=== PATIENT | female | born 1985 | race Caucasian/White ===

== ENCOUNTER 2018-10-12 16:48 | Inpatient (IN) | payer OTHER ==
[~2018-10-12] VITALS: Ht 167.6 cm; Wt 97.8 kg
[2018-10-12 17:04] VITALS: BP 144/83
[2018-10-12 17:14] VITALS: BP 114/68
[2018-10-12] MEDS ORDERED: PRENTAB9 PO (17:26)
[2018-10-12] MEDS ORDERED: DIBUCAINE 1% OINTMENT 30GM TOP PRN (20:00)
[2018-10-12] MEDS ORDERED: ACETAMINOPHEN TAB 650MG DOSE (2X325MG) PO PRN (20:00)
[2018-10-12] MEDS ORDERED: OXYTOCIN INJ 10 UNITS/ML VIAL (J2590) IM ONE (20:00)
[2018-10-12] MEDS ORDERED: LIDOCAINE 1% MDV 20ML VIAL INFIL ONE (20:00)
[2018-10-12] MEDS ORDERED: METHYLERGONOVINE MALEATE 0.2 MG TAB PO PRN (20:00)
[2018-10-12] MEDS ORDERED: DOCUSATE SODIUM 100 MG CAP PO PRN (20:00)
[2018-10-12] MEDS ORDERED: IBUPROFEN 600 MG TAB PO PRN (20:00)
[2018-10-12] MEDS ORDERED: OXYTOCIN DRIP 30 UNITS in APPROPRIATE DILUENT 1 EA IV SCH (20:00)
--- NOTE | 2018-10-12 20:20 | HPEPDOC ---
Obstetrical History & Physical General Date of Admission Oct 12, 2018 at 19:20 History of Present Illness 33yo at 39+5wks presents to LND c/o ctx that have been ongoing all day, now becoming longer, stronger and closer together. Pt reports +FM, Denies LOF/VB. complicated by migraines and hx of celiac disease. Pt is GBS Negative, HIV Negative, Blood Type O Positive. Chief Complaint: Contractions, term Information Provided By: Patient Care Care: Good Care Dating Final EDC: Oct 14, 2018 Final EDC by: LMP LMP: Jan 07, 2018 Antepartum Course Pre- weight (lbs.): 186 Admission Weight (lbs.): 217 Change in Weight (lbs.): 31 Past Medical History Past Obstetrical History : Past Obstetrical History: Multigravida SUPPORT SERVICES COORDINATOR History: No pertinent history Past Medical History Medical History OB Hx: x3, Hx of stillborn at 32 weeks, 2x term ; 1x SAB (uncomplicated); pelvis tested to 6lbs 3oz Medical Hx: Migraine ELY Celiac Disease Surgical Hx: Colonoscopy under anesthesia [place] Teeth Family Hx: noncontributory Social Hx: Denies x3 Psych Hx: Denies Social History Marital Status: Family situation: Spouse/partner home Imunizations Tdap status: current Allergies Coded Allergies: No Known Allergies (Unverified , 10/12/18) Medications Scheduled No.137/Iron/Folic Acd ( Vitamin Tablet) 1 Each Tablet, 1 TAB PO DAILY Physical Examination Physical Examination GENERAL: Alert and oriented times three. ABDOMEN: Gravid and non-tender to touch. FETUS: Is vertex (VTX) by sterile vaginal examination (SVE) LUNGS: Nonlabored breathing EXTREMITIES: No edema. Vital Signs/I&O Vital Signs Date Time Temp Pulse Resp B/P (MAP) Pulse Ox O2 Delivery O2 Flow Rate FiO2 10/12/18 17:20 97 10/12/18 17:14 99.0 16 114/68 (83) 97 Pertinent Laboratoy Data Blood Type: O+ RBC Antibody Screen: Negative HIV: Negative Hepatitis B: Negative Rapid Plasma Reagin: Nonreactive Rubella: Immune Varicella: Immune Chlamydia/Gonorrhea: Negative Group B Streptococcus: Negative Vaginal Examination Dilation: complete Effacement: 100% Station: 0 Cervical Consistency: Soft Cervical Position: Anterior Presentation: Cephalic presentation Assessment Heart Rate (FHR): 135 Variability: Moderate Accelerations: Positive Decelerations: None Tocometer Contractions: Yes Frequency: regular Strength: palpated as strong Assessment/Plan Assessment A: Active Labor, Category I FHT, GBS Negative, HIV Negative Plan P: Admit to LND Consent for imminent delivery Labs collected after delivery Anticipate OB Available for consult JUANCHO JOHNSON CNM Oct 12, 2018 20:14
[2018-10-12] MEDS ORDERED: IBUPROFEN 800 MG TAB As Ordered ONE (20:25)
--- NOTE | 2018-10-12 20:30 | DNPDOC ---
[facility] Delivery Note Delivery Note DATE OF DELIVERY: 12 October 2018 PREDELIVERY DIAGNOSIS: 39+5 weeks gestation and labor. POST DELIVERY DIAGNOSIS: Delivered. PROCEDURE: Uncomplicated Unmedicated BOOM CONVEYOR OPERATOR: BILLIE Johnson ANESTHESIA: Local only for repair ESTIMATED BLOOD LOSS: 250mL FINDINGS: 3360g male infant, Score 9/10 DELIVERY SUMMARY: Called to room for patient admitted from triage with strong urge to push. Pt noted to be 9/100/0 and intact. Pt counseled at the bedside for and pt consented to continue. Pt quickly progressed to C/C/+1 and commenced effective pushing to delivery viable male infant over a protected perineum. head delivered [place] and restituted to ROT. Left anterior shoulder delivered with ease, followed by right posterior shoulder, then remainder of body delivered to maternal abdomen where he was dried and stimulated; strong, lusty cry. Once cord stopped pulsing, cord clamped x2 and cut by FOB; cord blood collected for type and mauro. Placenta delivered spontaneously and appeared intact, 3VC. 10units IM pitocin administered d/t no IV site available. Fundus firm, EBL 250mL. Upon inspection of vagina, perineum, and cervix, a 1st degree vaginal laceration noted and repaired in usual fashion wiht 3-0 Chromic; good hemostasis achieved. Family unit bonding well, anticipate uncomplicated PP course. Plan for admission labs now and routine PP care. JUANCHO JOHNSON CNM Oct 12, 2018 20:30
[2018-10-12 21:16] LABS: HEMATOCRIT 37.2 % (36.0-47.0); HEMOGLOBIN 12.9 g/dl (12.0-15.5); MEAN CORPUSCULAR HEMOGLOBIN 33.1 pg (27.0-33.0); MEAN CORPUSCULAR HGB CONC 34.7 g/dl (32.0-36.5); MEAN CORPUSCULAR VOLUME 95.4 fl (80.0-96.0); PLATELET COUNT, AUTOMATED 208 10^3/uL (150-450)
[2018-10-12 22:15] VITALS: BP 131/81
[2018-10-12] MEDS: ACETAMINOPHEN 500 MG TAB PO PRN (22:34)
[2018-10-13 05:50] VITALS: BP 109/69
--- NOTE | 2018-10-13 07:03 | IPNPDOC ---
Progress Note Date of Service: Oct 13, 2018 Progress Note Vani is a 34 yo G5 now P3 who is PPD#1 s/p uncomplicated on [id number] at ~1945 after being admitted for active labor. She is currently recovering on the [place]in[place]. Vani reports feeling well this AM and has no complaints. She is ambulating, voiding, tolerating a regular diet, has minimal pain, and minimal lochia. She denies any headaches, RUQ pain, or visual changes Vitals - VSS, normotensive, afebrile, non tachycardic General - AAOX3, sitting up in bed, NAD, pleasant and conversant Abdomen - Fundus firm at U-2. No fundal tenderness. Extremities - No edema UO - appropriate. Ms. Bryson is doing well and is making an appropriate recovery. Discharge medications ordered at [facility]. Likely discharge home tomorrow. Continue routine care. All questions answered. Rosie Garza DO VS, I&O, 24H, Fishbone Vital Signs/I&O Vital Signs Date Time Temp Pulse Resp B/P (MAP) Pulse Ox O2 Delivery O2 Flow Rate FiO2 10/13/18 05:50 98.6 67 20 109/69 (82) 10/12/18 17:14 97 I&O- Last 24 Hours up to 6 AM 10/13/18 06:00 Intake Total 120 ml Output Total 250 ml Balance -130 ml Laboratory Data 24H LABS Laboratory Tests 2 10/12/18 20:10: Serology Scanned Report Hepatitis B Testing 10/12/18 21:03: Nucleated Red Blood Cells % (auto) 0.0 CBC/BMP Laboratory Tests 10/12/18 21:03 Red Blood Count 3.90 L, Mean Corpuscular Volume 95.4, Mean Corpuscular Hemoglobin 33.1 H, Mean Corpuscular Hemoglobin Concent 34.7, Red Cell Distribution Width 12.9 ROSIE GARZA DO Oct 13, 2018 07:03
[2018-10-13] MEDS: IBUPROFEN 800 MG TAB PO PRN ×3 (07:49→23:58)
[2018-10-13] MEDS: PRENATAL VITAMINS CHEWABLE TABLET PO SCH (09:46)
[2018-10-13] MEDS: ACETAMINOPHEN 500 MG TAB PO PRN ×2 (17:06→18:16)
[2018-10-13 18:13] VITALS: BP 108/74
[2018-10-14 05:30] VITALS: BP 124/79
--- NOTE | 2018-10-14 08:20 | IPNPDOC ---
Progress Note Date of Service: Oct 14, 2018 Day#: 2 Progress Note Vani is a 34 yo G5 now P3 who is PPD#2 s/p uncomplicated on [id number] at ~1945 after being admitted for active labor. She reports feeling well and has no concerns. She is ambulating, voiding, tolerating a regular diet, has minimal pain, and minimal lochia. She desires discharge home. Vitals - VS wnl General - AAOX3, sitting up in bed, NAD, pleasant and conversant Abdomen - Fundus firm at U-2. No fundal tenderness. Extremities - No edema Ms. Bryson is doing well and is making an appropriate recovery. Discharge medications ordered at [facility]. Discharge home today. VS, I&O, 24H, Fishbone Vital Signs/I&O Vital Signs Date Time Temp Pulse Resp B/P (MAP) Pulse Ox O2 Delivery O2 Flow Rate FiO2 10/14/18 05:30 97.9 71 18 124/79 (94) 97 VLADIMIR MIJARES MD Oct 14, 2018 08:20
[2018-10-14] MEDS ORDERED: IBUP80TA PO (08:24)
[2018-10-14] MEDS ORDERED: ACET-683 PO (08:24)
[2018-10-14] MEDS ORDERED: DIBU10OI TOP (08:24)
[2018-10-14] MEDS: ACETAMINOPHEN 500 MG TAB PO PRN (08:34)
[2018-10-14] MEDS: PRENATAL VITAMINS CHEWABLE TABLET PO SCH (08:34)
[2018-10-14] MEDS: IBUPROFEN 800 MG TAB PO PRN (08:34)
== END 2018-10-14 11:45 | disposition home or self-care (01) | DRG 807 ==
LOC: M LDO 16:48 → M LDI 19:20 → M OBS 22:15
PROVIDERS: ADMIT Obstetrics & Gynecology; ATTEND Registered Nurse Maternal Newborn
PROC: 10E0XZZ Delivery of Products of Conception, External Approach (ICD-10-PCS; principal; 2018-10-12)
PROC: 0HQ9XZZ Repair Perineum Skin, External Approach (ICD-10-PCS; 2018-10-12)
DX: O62.3 Precipitate labor (principal); Z37.0 Single live birth; Z3A.39 39 weeks gestation of pregnancy; O70.0 First degree perineal laceration during delivery

== ENCOUNTER → 2019-12-12 | Outpatient (REF) | payer OTHER ==
[~2019-12-12] MED LIST: ACET-683 PO; DIBU10OI TOP; IBUP80TA PO; PRENTAB9 PO
== END ==
LOC: M LAB REF 09:05
PROVIDERS: ATTEND Nurse Practitioner Family
DX: R31.9 Hematuria, unspecified (principal)